=== PATIENT | female | born 1935 | race Caucasian/White ===

== ENCOUNTER 2016-11-15 09:43 | Emergency (ER) | payer OTHER, BC ==
[~2016-11-15] VITALS: Ht 157.5 cm; Wt 77.0 kg
[~2016-11-15 09:43] MED LIST: ACET-1175 PO; ASCO500T16 PO; CALC600T9 PO; LACT10SO17 PO; LZL/125 PO; POLYSOL4 OP; ULT/50 PO
[2016-11-15 09:47] VITALS: Ht 157.5 cm; Wt 77.0 kg
[2016-11-15] MEDS ORDERED: ONDANSETRON INJ 2 MG/ML 2 ML VIAL IV STA (09:51)
[2016-11-15] MEDS ORDERED: FENTANYL CITRATE INJ 50 MCG/1 ML 2 ML VIAL IV PRN (10:00)
--- NOTE | 2016-11-15 10:04 | EMERGENCY ROOM VISIT NOTE ---
History Report prepared by Derek: Robles Parra Under the Supervision of: Dr. Alhaji Cannon D.O. First contact with patient: 09:47 Chief Complaint: HIP PAIN Stated Complaint: FALL/HIP PAIN History of Present Illness The patient is an 81 year old female who presents to the Emergency Room with complaints of worsening right hip pain that started a week ago after falling. She says that she was leaning over on her recliner chair when she lost her balance and rolled onto her foot stand. The patient's hip pain has been getting worse every day since the fall. She did not hit her head on the fall. The patient says that she cannot put any weight on the hip, and the pain is worsened by movement. She has had to use a walker to ambulate for the past week after the fall. The patient has a history of bilateral hip replacement. She denies any chest pain, nausea, vomiting, or leg pain around the knee. 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 Source of History: patient Onset: A week ago Position: other (hip - right) Symptom Intensity: cannot put any weight on right hip Timing: worsening Modifying Factors (Worsening): movement Associated Symptoms: No chest pain, No nausea, No vomiting Note: Associated symptoms: Denies any leg pain around knee. Review of Systems See HPI for pertinent positives & negatives. A total of 10 systems reviewed and were otherwise negative. Past Medical & Surgical Medical Problems: (1) Cirrhosis of liver (2) Hypertension Family History Cancer Stroke Social History Smoking Status: Never Smoker Alcohol Use: none Marital Status: Housing Status: lives with significant other Occupation Status: retired Current/Historical Medications Scheduled Ascorbic Acid (Ascorbic Acid), 500 MG PO DAILY Aspirin (Aspirin Ec), 81 MG PO Q2D Calcium Carbonate-Vitamin D (Calcium + D), 1 TAB PO QAM Indapamide (Lozol), 1.25 MG PO QAM Lactulose (Chronulac), 1 DOSE PO HS Polyethylene Glycol 3350 (Miralax), 17 GM PO DAILY Scheduled PRN Acetaminophen (Tylenol), 325 MG PO UD PRN for Pain Oxycodone Immediate Rel Tab (Roxicodone Ir), 1 TAB PO Q4H PRN for Severe Pain Polyethylene Glycol-Propylene (Systane), 1 DROPS OP UD PRN for DRY EYE Tramadol Hcl (Ultram), 50 MG PO UD PRN for Pain Allergies Coded Allergies: No Known Allergies (Unverified , 11/15/16) Physical Exam Vital Signs Date Time Temp Pulse Resp B/P Pulse Ox O2 Delivery O2 Flow Rate FiO2 11/15/16 13:30 36.4 72 22 181/73 98 11/15/16 13:04 72 11/15/16 12:00 74 22 140/73 98 Room Air 11/15/16 10:50 68 22 169/73 95 Room Air 11/15/16 10:02 71 11/15/16 09:47 36.4 74 20 180/77 97 Room Air Physical Exam GENERAL: Patient is awake, alert, somewhat anxious and uncomfortable appearing. EYES: Left pupil was dilated and minimally reactive to light. Right pupil was mid-sized and reactive to light, extraocular muscles intact. EARS, NOSE, MOUTH AND THROAT: The nose is without any evidence of any deformity. Mucous membranes are dry tongue is midline NECK: The neck is nontender and supple. RESPIRATORY: Normal respiratory effort is noted there is no evidence of wheezing rhonchi or rales CARDIOVASCULAR: Regular rate and rhythm noted there no murmurs rubs or gallops normal S1 normal S2 GASTROINTESTINAL: The abdomen is soft. Bowel sounds are present in all quadrants. Abdomen is nontender BACK: No midline tenderness or or step-off noted range of motion in flexion extension as well as rotation no signs of muscle spasm noted MUSCULOSKELETAL/EXTREMITIES: No shortening or deformity of right lower extremity , but patient had significant pain with any range of motion testing. SKIN: Pedal edema bilaterally. Skin was warm and dry. Pulses symmetric. NEUROLOGIC: Patient is awake alert and oriented x3. Medical Decision & Procedures ER Provider Diagnostic Interpretation: Radiology results as stated below per my review and radiologist interpretation: AP PELVIS AND RIGHT HIP 4 VIEWS CLINICAL HISTORY: Right hip pain status post trauma COMPARISON STUDY: Outside study dated 12/23/2010 FINDINGS: There are postsurgical changes of bilateral total hip arthroplasties. No acute fractures are visualized. IMPRESSION: Postsurgical change. No acute fractures are visualized. There are no dislocations. Electronically signed by: Uvaldo Ferguson M.D. 11/15/2016 10:42 AM Dictated Date/Time: 11/15/2016 10:40 AM CHEST ONE VIEW PORTABLE CLINICAL HISTORY: fall PAIN COMPARISON STUDY: 01/20/2016 FINDINGS: The heart is borderline enlarged. There is no failure. There is no focal pulmonary consolidation. There are no pleural effusions. There is minor chronic interstitial thickening. Arthritic changes are present within the shoulder. Calcified loose bodies are visualized inferior to the left scapular glenoid.[ IMPRESSION: No active disease in the chest. Electronically signed by: Uvaldo Ferguson M.D. 11/15/2016 10:40 AM Dictated Date/Time: 11/15/2016 10:[address] DOSE: HISTORY: fall, right hip pain TECHNIQUE: Multiaxial CT images of the pelvis were performed and reformatted in the sagittal and coronal plane without the use of contrast. COMPARISON: Right hip CT 11/15/2016. FINDINGS: Bilateral total hip arthroplasties. The hardware appears intact. No acute fracture dislocation within the pelvis or hips. Degenerative changes at the bilateral sacroiliac joints. Colonic diverticulosis. The uterus appears surgically absent. 3.1 cm left pelvic sidewall cystic lesion. This may related to the left ovary. IMPRESSION: 1. No acute fracture or dislocation within the pelvis or hips. 2. Bilateral total hip arthroplasties. 3. A 3.1 cm left pelvic sidewall cystic lesion. This may be related to the left ovary. Technically, this would be considered pathologic in a postmenopausal female. Electronically signed by: Leighton Conteh M.D. 11/15/2016 11:59 AM Dictated Date/Time: 11/15/2016 11:[address] OF THE RIGHT HIP CT DOSE: 1062.89 mGy.cm HISTORY: Trauma fall, RLE pain Right TECHNIQUE: Multiaxial CT images of the right hip were performed and reformatted in the sagittal and coronal plane without the use of contrast. COMPARISON: None. FINDINGS: No fracture or dislocation. Soft tissues are unremarkable. There are findings of a total right hip arthroplasty. No evidence for cortical fracture. Acetabular cup is intact. IMPRESSION: No acute process status post total right hip arthroplasty Electronically signed by: Rohit Will M.D. 11/15/2016 11:29 AM Dictated Date/Time: 11/15/2016 11:26 AM Laboratory Results 11/15/16 10:00 Red Blood Count 3.93, Mean Corpuscular Volume 98.2, Mean Corpuscular Hemoglobin 34.9, Mean Corpuscular Hemoglobin Concent 35.5, Mean Platelet Volume 9.1, Neutrophils (%) (Auto) 57.2, Lymphocytes (%) (Auto) 29.6, Monocytes (%) (Auto) 8.0, Eosinophils (%) (Auto) 3.8, Basophils (%) (Auto) 1.4, Neutrophils # (Auto) 1.64, Lymphocytes # (Auto) 0.85, Monocytes # (Auto) 0.23, Eosinophils # (Auto) 0.11, Basophils # (Auto) 0.04 11/15/16 10:00 Test 11/15/16 10:00 11/15/16 10:50 White Blood Count 2.87 K/uL (4.8-10.8) Red Blood Count 3.93 M/uL (4.2-5.4) Hemoglobin 13.7 g/dL (12.0-16.0) Hematocrit 38.6 % (37-47) Mean Corpuscular Volume 98.2 fL (80-100) Mean Corpuscular Hemoglobin 34.9 pg (25-34) Mean Corpuscular Hemoglobin Concent 35.5 g/dl (32-36) Platelet Count 66 K/uL (130-400) Mean Platelet Volume 9.1 fL (7.4-10.4) Neutrophils (%) (Auto) 57.2 % Lymphocytes (%) (Auto) 29.6 % Monocytes (%) (Auto) 8.0 % Eosinophils (%) (Auto) 3.8 % Basophils (%) (Auto) 1.4 % Neutrophils # (Auto) 1.64 K/uL (1.4-6.5) Lymphocytes # (Auto) 0.85 K/uL (1.2-3.4) Monocytes # (Auto) 0.23 K/uL (0.11-0.59) Eosinophils # (Auto) 0.11 K/uL (0-0.5) Basophils # (Auto) 0.04 K/uL (0-0.2) RDW Standard Deviation 47.1 fL (36.4-46.3) RDW Coefficient of Variation 13.0 % (11.5-14.5) Immature Granulocyte % (Auto) 0.0 % Immature Granulocyte # (Auto) 0.00 K/uL (0.00-0.02) Prothrombin Time 19.4 SECONDS (9.0-12.0) Prothromb Time International Ratio 1.8 (0.9-1.1) Activated Partial Thromboplast Time 28.5 SECONDS (21.0-31.0) Partial Thromboplastin Ratio 1.1 Anion Gap 7.0 mmol/L (3-11) Est Creatinine Clear Calc Drug Dose 65.1 ml/min Estimated GFR () 96.3 Estimated GFR (Non- 83.1 BUN/Creatinine Ratio 17.1 (10-20) Calcium Level 9.3 mg/dl (8.5-10.1) Total Bilirubin 1.9 mg/dl (0.2-1) Direct Bilirubin 0.7 mg/dl (0-0.2) Aspartate Amino Transf (AST/SGOT) 70 U/L (15-37) Alanine Aminotransferase (ALT/SGPT) 77 U/L (12-78) Alkaline Phosphatase 163 U/L (45-117) Troponin I < 0.015 ng/ml (0-0.045) Total Protein 7.1 gm/dl (6.4-8.2) Albumin 3.3 gm/dl (3.4-5.0) Lipase 91 U/L (73-393) Urine Color YELLOW Urine Appearance CLEAR (CLEAR) Urine pH 8.0 (4.5-7.5) Urine Specific [place] 1.008 (1.000-1.030) Urine Protein NEG (NEG) Urine Glucose (UA) NEG (NEG) Urine Ketones NEG (NEG) Urine Occult Blood NEG (NEG) Urine Nitrite NEG (NEG) Urine Bilirubin NEG (NEG) Urine Urobilinogen NEG (NEG) Urine Leukocyte Esterase NEG (NEG) Laboratory results per my review. Medications Administered Medications (Trade) Dose Ordered Sig/Tova Route Start Time Stop Time Status Last Admin Dose Admin Fentanyl Citrate (Fentanyl Inj) 50 mcg Q20M PRN IV 11/15/16 10:00 11/15/16 13:57 DC 11/15/16 10:48 50 MCG Ondansetron HCl (Zofran Inj) 4 mg NOW STAT IV 11/15/16 09:51 11/15/16 09:53 DC 11/15/16 10:48 4 MG ECG Indication: other (hip pain) Rate (beats per minute): 68 Rhythm: normal sinus Findings: no ectopy, other (LVH noted by voltage criteria) Change: no significant change (from January 20 2016) ED Course 0948: The patient was evaluated in room C3. A complete history and physical examination were performed. 0951: Ordered Zofran Inj 4 mg IV. 1000: Ordered Fentanyl 50 mcg IV PRN. 1047: I reevaluated the patient and she is sitting up in bed. 1233: I reevaluated the patient and she is ready to go home. The patient verbally expressed understanding and agreement of the treatment plan. The patient will be discharged. 1313: I discussed the patient with Dr. Pilo MIRANDA nephrology - he will follow up with the patient. Medical Decision Differential diagnosis: Etiologies such as fracture, dislocation, neurovascular compromise, compartment syndrome, soft tissue injury, as well as others were entertained. Nursing notes reviewed. The patient is an 81-year-old female who had a fall 2 weeks ago who is been expressing worsening pain in her right hip. She states the pain is to the point now where she cannot ambulate without severe pain. The patient was treated with pain medication in the emergency department. Initially x-rays were obtained which did not show any acute disease. Given that she's had surgery in the past I also did CAT scans to rule out any occult fracture. The patient was evaluate her multiple times. I discussed her case with the [facility] department caseworker. I also discussed her case with her primary care physician. At this time the patient is to go home and continue pain medication. We will also try to set the patient up with home health. She was encouraged to return to the emergency apartment immediately if symptoms change worsen or the need arises. Consults Time Called: 1300 Consulting Physician: Dr. Pilo MIRANDA nephrology Returned Call: 1313 I discussed the patient with Dr. Pilo MIRANDA nephrology - he will follow up with the patient. Impression Primary Impression: Fall Additional Impressions: Contusion of right hip Pelvic contusion Scribe Attestation The scribe's documentation has been prepared under my direction and personally reviewed by me in its entirety. I confirm that the note above accurately reflects all work, treatment, procedures, and medical decision making performed by me. Departure Information Dispostion Home / Self-Care Prescriptions Oxycodone Immediate Rel Tab (ROXICODONE IR) 5 Mg Tab 1 TAB PO Q4H Y for Severe Pain, #20 TAB Prov: Alhaji Cannon, DO 11/15/16 Polyethylene Glycol 3350 (MIRALAX) 1 Pow Pow 17 GM PO DAILY, #527 GM Prov: Alhaji Cannon, DO 11/15/16 Referrals Ariel Daigle M.D. (PCP) Forms HOME CARE DOCUMENTATION FORM, IMPORTANT VISIT INFORMATION, WORK / SCHOOL INSTRUCTIONS Patient Instructions ED Contusion Hip, My [facility] Additional Instructions Continue all medications as prescribed. Rest and avoid any strenuous activity. Follow-up with your family this week for reevaluation. You should also discussed the abnormality noted on CAT scan on your left pelvis. This may require further workup. Continue taking the stool softener as long as you're taking the pain medication. Continue only the oxycodone that was prescribed today or the tramadol also notices Ultram. Do not take both of these medications together. Problem Qualifiers Primary Impression: Fall Encounter type: initial encounter Qualified Codes: W19.XXXA - Unspecified fall, initial encounter Additional Impressions: Contusion of right hip Encounter type: initial encounter Qualified Codes: S70.01XA - Contusion of right hip, initial encounter Pelvic contusion Encounter type: initial encounter Qualified Codes: S30.0XXA - Contusion of lower back and pelvis, initial encounter
[2016-11-15] MEDS ORDERED: ASPI81TA28 PO (10:05)
[2016-11-15 10:31] LABS: HEMATOCRIT 38.6 % (37-47); MEAN CELL VOLUME 98.2 fL (80-100); MEAN CORPUSCULAR HEMOGLOBIN 34.9 pg (25-34); MEAN CORPUSCULAR HGB CONC 35.5 g/dl (32-36); MEAN PLATELET VOLUME 9.1 fL (7.4-10.4); PLATELET COUNT 66 K/uL (130-400); RED BLOOD COUNT 3.93 M/uL (4.2-5.4); WHITE BLOOD COUNT 2.87 K/uL (4.8-10.8)
[2016-11-15 10:32] LABS: INR 1.8 (0.9-1.1); PARTIAL THROMBOPLASTIN RATIO 1.1; PROTHROMBIN TIME (PATIENT) 19.4 SECONDS (9.0-12.0)
--- NOTE | 2016-11-15 10:42 | DIAGNOSTIC IMAGING REPORT ---
CHEST ONE VIEW PORTABLE CLINICAL HISTORY: fall PAIN COMPARISON STUDY: 01/20/2016 FINDINGS: The heart is borderline enlarged. There is no failure. There is no focal pulmonary consolidation. There are no pleural effusions. There is minor chronic interstitial thickening. Arthritic changes are present within the shoulder. Calcified loose bodies are visualized inferior to the left scapular glenoid.[ IMPRESSION: No active disease in the chest. Electronically signed by: Uvaldo Ferguson M.D. 11/15/2016 10:40 AM Dictated Date/Time: 11/15/2016 10:39 AM
[2016-11-15 10:43] LABS: BASO % 1.4 %; BASO ABS # 0.04 K/uL (0-0.2); COMPLETE YES; EOS % 3.8 %; LYMPH % 29.6 %; LYMPH ABS # 0.85 K/uL (1.2-3.4); NEUT % 57.2 %
[2016-11-15 10:44] LABS: ALT/SGPT 77 U/L (12-78); AST/SGOT 70 U/L (15-37); BLOOD UREA NITROGEN 11 mg/dl (7-18); BUN/CREATININE RATIO 17.1 (10-20); CALCIUM 9.3 mg/dl (8.5-10.1); CARBON DIOXIDE 31 mmol/L (21-32); CHLORIDE 102 mmol/L (98-107); CREATININE 0.64 mg/dl (0.60-1.20); GLUCOSE 127 mg/dl (70-99); POTASSIUM 3.6 mmol/L (3.5-5.1); SODIUM 140 mmol/L (136-145)
--- NOTE | 2016-11-15 10:44 | DIAGNOSTIC IMAGING REPORT ---
AP PELVIS AND RIGHT HIP 4 VIEWS CLINICAL HISTORY: Right hip pain status post trauma COMPARISON STUDY: Outside study dated 12/23/2010 FINDINGS: There are postsurgical changes of bilateral total hip arthroplasties. No acute fractures are visualized. IMPRESSION: Postsurgical change. No acute fractures are visualized. There are no dislocations. Electronically signed by: Uvaldo Ferguson M.D. 11/15/2016 10:42 AM Dictated Date/Time: 11/15/2016 10:40 AM
[2016-11-15 10:49] LABS: ALKALINE PHOSPHATASE 163 U/L (45-117)
[2016-11-15 11:20] LABS: URINE APPEARANCE CLEAR (CLEAR); URINE BILIRUBIN NEG (NEG); URINE COLOR YELLOW; URINE NITRITE NEG (NEG); URINE SPECIFIC GRAVITY 1.008 (1.000-1.030); UROBILINOGEN NEG (NEG)
--- NOTE | 2016-11-15 11:30 | DIAGNOSTIC IMAGING REPORT ---
CT OF THE RIGHT HIP CT DOSE: 1062.89 mGy.cm HISTORY: Trauma fall, RLE pain Right TECHNIQUE: Multiaxial CT images of the right hip were performed and reformatted in the sagittal and coronal plane without the use of contrast. COMPARISON: None. FINDINGS: No fracture or dislocation. Soft tissues are unremarkable. There are findings of a total right hip arthroplasty. No evidence for cortical fracture. Acetabular cup is intact. IMPRESSION: No acute process status post total right hip arthroplasty Electronically signed by: Rohit Will M.D. 11/15/2016 11:29 AM Dictated Date/Time: 11/15/2016 11:26 AM
[2016-11-15 11:33] LABS: MANUAL MICROSCOPIC REQUIRED? NO; REVIEW REQ? NO
--- NOTE | 2016-11-15 12:00 | DIAGNOSTIC IMAGING REPORT ---
PELVIS CT CT DOSE: HISTORY: fall, right hip pain TECHNIQUE: Multiaxial CT images of the pelvis were performed and reformatted in the sagittal and coronal plane without the use of contrast. COMPARISON: Right hip CT 11/15/2016. FINDINGS: Bilateral total hip arthroplasties. The hardware appears intact. No acute fracture dislocation within the pelvis or hips. Degenerative changes at the bilateral sacroiliac joints. Colonic diverticulosis. The uterus appears surgically absent. 3.1 cm left pelvic sidewall cystic lesion. This may related to the left ovary. IMPRESSION: 1. No acute fracture or dislocation within the pelvis or hips. 2. Bilateral total hip arthroplasties. 3. A 3.1 cm left pelvic sidewall cystic lesion. This may be related to the left ovary. Technically, this would be considered pathologic in a postmenopausal female. Electronically signed by: Leighton Conteh M.D. 11/15/2016 11:59 AM Dictated Date/Time: 11/15/2016 11:52 AM
[2016-11-15] MEDS ORDERED: POLY335019 PO (12:56)
[2016-11-15] MEDS ORDERED: OXYC1TAB3 PO (12:56)
[2016-11-15 13:30] VITALS: BP 181/73; PULSE 72; TEMP 36.4; O2SAT 98
== END 2016-11-15 13:34 | disposition home or self-care (01) ==
LOC: EDBD 09:43 → C.EDC 09:45
DX: S70.01XA Contusion of right hip, initial encounter (principal); S30.0XXA Contusion of lower back and pelvis, initial encounter; W19.XXXA Unspecified fall, initial encounter; I10 Essential (primary) hypertension

== ENCOUNTER → 2017-05-25 | Outpatient (CLI) | payer OTHER, BC ==
[~2017-05-25] MED LIST changes: +ASPI81TA28 PO
--- NOTE | 2017-05-25 17:07 | DIAGNOSTIC IMAGING REPORT ---
NECK ULTRASOUND CLINICAL HISTORY: Palpable right neck mass. COMPARISON STUDY: None. TECHNIQUE: Sonography of the neck at site of palpable abnormality was performed. FINDINGS: The palpable abnormality corresponds to a complex right upper neck mass that measures approximately 4.6 x 3.8 x 1.7 cm. Color flow is identified within the more solid appearing component of this abnormality. An adjacent hypoechoic portion may reflect a portion of this mass or a pathologic lymph node. A few additional enlarged adjacent suspected cervical lymph nodes were noted. IMPRESSION: 4.6 x 3.8 x 1.7 cm complex right upper neck mass which represents the palpable abnormality. A few adjacent hypoechoic abnormalities may reflect pathologic lymph nodes. Ultrasound-guided fine needle aspiration of the dominant mass is recommended as the findings are highly suggestive of a neoplastic process. Electronically signed by: Abdiaziz Vanegas M.D. 05/25/2017 5:06 PM Dictated Date/Time: 05/25/2017 5:01 PM
[2017-05-25 17:34] LABS: HEMATOCRIT 40.1 % (37-47); MEAN CELL VOLUME 97.6 fL (80-100); MEAN CORPUSCULAR HEMOGLOBIN 33.6 pg (25-34); MEAN CORPUSCULAR HGB CONC 34.4 g/dl (32-36); MEAN PLATELET VOLUME 9.4 fL (7.4-10.4); PLATELET COUNT 91 K/uL (130-400); RED BLOOD COUNT 4.11 M/uL (4.2-5.4); WHITE BLOOD COUNT 5.07 K/uL (4.8-10.8)
[2017-05-25 17:35] LABS: BASO % 1.2 %; BASO ABS # 0.06 K/uL (0-0.2); COMPLETE YES; EOS % 2.8 %; IG% 0.2 %; LYMPH % 27.4 %; LYMPH ABS # 1.39 K/uL (1.2-3.4); MONO % 8.1 %; NEUT % 60.3 %; PLT ESTIMATE DECREASED
[2017-05-25 17:55] LABS: ALB/GLOB RATIO 0.8 (0.9-2); ALKALINE PHOSPHATASE 166 U/L (45-117); ALT/SGPT 70 U/L (12-78); AST/SGOT 65 U/L (15-37); BLOOD UREA NITROGEN 13 mg/dl (7-18); BUN/CREATININE RATIO 22.7 (10-20); CALCIUM 9.6 mg/dl (8.5-10.1); CARBON DIOXIDE 28 mmol/L (21-32); CHLORIDE 100 mmol/L (98-107); CREATININE 0.55 mg/dl (0.60-1.20); GLUCOSE 80 mg/dl (70-99); POTASSIUM 3.7 mmol/L (3.5-5.1); SODIUM 135 mmol/L (136-145)
[2017-05-26 13:22] LABS: ESTIMATED AVERAGE GLUCOSE 105 mg/dl; HA1C FLAG Normal (Normal)
== END | disposition home or self-care (01) ==
LOC: C.ULTR 16:21
PROVIDERS: ATTEND Physician Assistant
DX: R22.1 Localized swelling, mass and lump, neck (principal); I25.10 Atherosclerotic heart disease of native coronary artery without angina pectoris; I10 Essential (primary) hypertension; I63.9 Cerebral infarction, unspecified

== ENCOUNTER → 2017-06-02 | Outpatient (CLI) | payer OTHER, BC ==
[2017-06-09 11:40] LABS: NEO MISC SEE FLOW
== END | disposition home or self-care (01) ==
LOC: C.PATH 08:16
PROVIDERS: ATTEND Physician Assistant
DX: C76.0 Malignant neoplasm of head, face and neck (principal)

== ENCOUNTER → 2017-08-04 | Outpatient (CLI) | payer OTHER, BC ==
[~2017-08-04] MED LIST changes: -ASPI81TA28 PO
[2017-08-04 12:39] LABS: HEMATOCRIT 38.2 % (37-47); MEAN CELL VOLUME 98.7 fL (80-100); MEAN CORPUSCULAR HEMOGLOBIN 34.6 pg (25-34); MEAN CORPUSCULAR HGB CONC 35.1 g/dl (32-36); RED BLOOD COUNT 3.87 M/uL (4.2-5.4); WHITE BLOOD COUNT 5.34 K/uL (4.8-10.8)
[2017-08-04 13:05] LABS: ALT/SGPT 96 U/L (12-78); AST/SGOT 52 U/L (15-37); BLOOD UREA NITROGEN 17 mg/dl (7-18); CALCIUM 8.8 mg/dl (8.5-10.1); CARBON DIOXIDE 27 mmol/L (21-32); CHLORIDE 100 mmol/L (98-107); CREATININE 0.75 mg/dl (0.60-1.20); GLUCOSE 255 mg/dl (70-99); POTASSIUM 3.4 mmol/L (3.5-5.1); SODIUM 134 mmol/L (136-145)
[2017-08-04 13:06] LABS: MEAN PLATELET VOLUME 9.4 fL (7.4-10.4); PLATELET COUNT 58 K/uL (130-400)
[2017-08-04 13:08] LABS: ALB/GLOB RATIO 0.8 (0.9-2); ALKALINE PHOSPHATASE 168 U/L (45-117)
[2017-08-04 13:26] LABS: BASO % 0.2 %; BASO ABS # 0.01 K/uL (0-0.2); COMPLETE YES; EOS % 1.5 %; IG% 0.2 %; LYMPH % 17.8 %; LYMPH ABS # 0.95 K/uL (1.2-3.4); MONO % 7.9 %; NEUT % 72.4 %
== END | disposition home or self-care (01) ==
LOC: C.LABPVFM 09:57
PROVIDERS: ATTEND Internal Medicine Hematology & Oncology
DX: C85.90 Non-Hodgkin lymphoma, unspecified, unspecified site (principal)

== ENCOUNTER → 2017-09-05 | Outpatient (CLI) | payer OTHER, BC ==
[2017-09-05 12:27] LABS: HEMATOCRIT 41.4 % (37-47); HEMOGLOBIN 14.6 g/dL (12.0-16.0); MEAN CORPUSCULAR HEMOGLOBIN 35.6 pg (25-34); MEAN CORPUSCULAR HGB CONC 35.3 g/dl (32-36); RED CELL DISTRIBUTION WIDTH CV 15.2 % (11.5-14.5); RED CELL DISTRIBUTION WIDTH SD 55.8 fL (36.4-46.3); WHITE BLOOD COUNT 5.58 K/uL (4.8-10.8)
[2017-09-05 12:30] LABS: BASO % 0.5 %; BASO ABS # 0.03 K/uL (0-0.2); EOS % 0.7 %; EOS ABS # 0.04 K/uL (0-0.5); IG# 0.03 K/uL (0.00-0.02); LYMPH % 15.1 %; LYMPH ABS # 0.84 K/uL (1.2-3.4); MEAN PLATELET VOLUME 9.2 fL (7.4-10.4); MONO % 6.5 %; MONO ABS # 0.36 K/uL (0.11-0.59); NEUT % 76.7 %; NEUT ABS # 4.28 K/uL (1.4-6.5); PLATELET COUNT 75 K/uL (130-400)
[2017-09-05 12:44] LABS: ALBUMIN 2.8 gm/dl (3.4-5.0); ALT/SGPT 239 U/L (12-78); AST/SGOT 183 U/L (15-37); BLOOD UREA NITROGEN 14 mg/dl (7-18); CALCIUM 9.1 mg/dl (8.5-10.1); CARBON DIOXIDE 29 mmol/L (21-32); CREATININE 0.87 mg/dl (0.60-1.20); GLUCOSE 265 mg/dl (70-99); POTASSIUM 2.7 mmol/L (3.5-5.1); SODIUM 133 mmol/L (136-145)
[2017-09-05 12:46] LABS: ALKALINE PHOSPHATASE 220 U/L (45-117); TOTAL PROTEIN 6.7 gm/dl (6.4-8.2)
== END | disposition home or self-care (01) ==
LOC: C.LABPVFM 12:49
PROVIDERS: ATTEND Internal Medicine Hematology & Oncology
DX: C85.91 Non-Hodgkin lymphoma, unspecified, lymph nodes of head, face, and neck (principal)

== ENCOUNTER → 2017-10-06 | Outpatient (CLI) | payer OTHER, BC | END | disposition home or self-care (01) | LOC: C.LABSPEC 12:05 | PROVIDERS: ATTEND Internal Medicine Hematology & Oncology | DX: C85.91 Non-Hodgkin lymphoma, unspecified, lymph nodes of head, face, and neck (principal) ==

== ENCOUNTER → 2017-10-14 | Outpatient (CLI) | payer OTHER, BC | END | disposition home or self-care (01) | LOC: C.LABSPEC 11:29 | PROVIDERS: ATTEND Internal Medicine Hematology & Oncology | DX: C85.91 Non-Hodgkin lymphoma, unspecified, lymph nodes of head, face, and neck (principal) ==